=== PATIENT | female | born 1980 | race African-American/Black ===

== ENCOUNTER 2019-08-12 11:14 | Emergency (ER) | payer OTHER, MEDICAID ==
[~2019-08-12] VITALS: Ht 175.3 cm; Wt 108.9 kg
[~2019-08-12 11:14] MED LIST: ALLEGRA-D 24 H1 EACH PO; AMOXICILLIN 50500 MG PO; ANAPROX275 MG PO; AUGMENTIN 875875 MG PO; CEFDINIR300 MG PO; CIPRO250 M1 PO; CLONIDINE0.1 PO; COLACE100 MG PO; EFFEXOR XR37.5 MG PO; EFFEXOR XR75 MG PO; ERY-TAB500 MG PO; FIORICET 50-321 EACH PO; FLEXERIL PO; HYDROCODON-ACE1 EAC7 PO; HYDROXYZINE HCL25 M2 PO; HYDROXYZINE PAM25 M1 PO; IBUPROFEN 800800 M1 PO; LEVOTHROID; LEVOXYL175 MCG PO; LODINE XL500 MG PO; LYRICA 50 MG50 MG PO; MACROBID 100 M100 M1 PO; NORCO 5-325 TA1 EAC1 PO; NORCO 5-325 TA1 EACH PO; NORFLEX100 MG PO; NORVASC5 MG PO; PENICILLIN VK500 M1 PO; PENICILLIN VK500 MG PO; PERCOCET PO; PHENERGAN 25 MG25 MG PO; PREDNISONE 10 M10 MG PO; PREDNISONE 20 M20 M1 PO; PROZAC10 MG PO; PYRIDIUM200 MG PO; SYNTHROID300 MCG PO; SYNTHROID75 MCG PO; TOBRAMYCIN SULFA5 ML OP; ULTRAM 50MG TAB50 MG PO; VISTARIL 25 MG25 M1 PO; VITAMIN D 5050000 I1 PO; WELLBUTRIN SR150 MG PO; XANAX 0.5 MG0.5 MG PO; XANAX XR1 MG PO; ZANAFLEX4 MG PO; ZPAK PO
[2019-08-12] MEDS ORDERED: NORCO 5-325 TA1 EAC1 PO (12:15)
[2019-08-12] MEDS ORDERED: IBUPROFEN 800800 M1 PO (12:15)
[2019-08-12 12:58] VITALS: BP 160/88
== END 2019-08-12 13:00 | disposition home or self-care (01) ==
LOC: M.ERS 11:14
DX: S20.212A Contusion of left front wall of thorax, initial encounter (principal); E03.9 Hypothyroidism, unspecified; M79.7 Fibromyalgia; I10 Essential (primary) hypertension; F17.210 Nicotine dependence, cigarettes, uncomplicated; Z88.1 Allergy status to other antibiotic agents; Z88.8 Allergy status to other drugs, medicaments and biological substances; Z98.890 Other specified postprocedural states; W18.39XA Other fall on same level, initial encounter; Y93.89 Activity, other specified; Y92.89 Other specified places as the place of occurrence of the external cause; Y99.8 Other external cause status